=== PATIENT | male | born 1975 | race Hispanic/Latino ===

== ENCOUNTER 2016-11-29 23:15 | Emergency (ER) | payer SELFPAY ==
[2016-11-30 00:19] LABS: Eosinophils % (Auto) 2.4 % (0.0-4.3); Hematocrit 39.4 % (35.5-45.6); Hemoglobin 13.6 gm/dl (11.8-15.2); Mean Corpuscular HGB Conc 35 % (32-34); Mean Corpuscular Hemoglobin 32 pg (28-32); Mean Corpuscular Volume 94 fl (84-94); Platelet Count 250 K/mm3 (140-440); Red Blood Count 4.19 M/mm3 (3.65-5.03); Red Cell Distribution Width 12.6 % (13.2-15.2); White Blood Count 9.2 K/mm3 (4.5-11.0)
[2016-11-30 00:37] LABS: Creatine Kinase MB 1.8 ng/mL (0.0-4.0)
[2016-11-30 00:38] LABS: Alanine Aminotransferase 19 units/L (7-56); Albumin 3.8 g/dL (3.9-5); Albumin/Globulin Ratio 1.3 %; Alkaline Phosphatase 56 units/L (35-129); Anion Gap 18 mmol/L; Bilirubin,Total 0.3 mg/dL (0.1-1.2); Blood Urea Nitrogen 18 mg/dL (9-20); Calcium 8.9 mg/dL (8.4-10.2); Carbon Dioxide 24 mmol/L (22-30); Chloride 101.4 mmol/L (98-107); Glucose 102 mg/dL (75-100); Potassium 4.1 mmol/L (3.6-5.0); Sodium 139 mmol/L (137-145); Total Protein 6.8 g/dL (6.3-8.2)
[2016-11-30] MEDS ORDERED: ASPIRIN PO ONE (02:35)
[2016-11-30] MEDS ORDERED: NITRO-BID 2% TP ONE (02:35)
[2016-11-30] MEDS ORDERED: NACL ONE (02:37)
--- NOTE | 2016-11-30 02:40 | Emergency Department Report ---
HPI - General Chief Complaint: Chest Pain Time Seen by Provider: 11/30/16 02:28 - [facility] HPI: Room 17 The patient is a 41-year-old male presenting with a chief complaint of chest pain. The patient states at approximately 21:00 he developed left-sided chest pain that felt as though someone was sitting on him and stabbing with a knife. The patient admits to shortness of breath and nausea but denies vomiting with the chest pain. The patient states she did develop some diaphoresis with this chest pain. The chest pain has been constant has subsided some but is still present. The patient currently gives his chest pain a score of 4-5/10. Patient does admit to pleuritic component. Patient denies any recent flights or long car trips. The patient states she's never had a stress test or cardiac catheterization Location: Left chest Duration: Constant since 21:00 Quality: Sharp Severity: 4-5/10 Modifying factors: [see above] Context: [see above] Mode of transportation: [not driving] ED Past Medical Hx - Past Medical History Previous Medical History?: No - Surgical History Past Surgical History?: No - Family History Family history: no significant - Social History Smoking Status: Current Every Day Smoker Substance Use Type: None - Medications Home Medications: Home Medications Medication Instructions Recorded Confirmed Last Taken Type Methadone HCl [Diskets] 80 mg PO Q12HR 11/29/16 11/29/16 11/29/16 History ED Review of Systems ROS: Stated complaint: CHEST PAIN Other details as noted in HPI Comment: All other systems reviewed and negative Constitutional: diaphoresis ENT: denies: ear pain, throat pain Respiratory: shortness of breath Cardiovascular: chest pain Endocrine: no symptoms reported Gastrointestinal: nausea. denies: vomiting Genitourinary: denies: urgency, dysuria Musculoskeletal: denies: back pain, joint swelling, arthralgia Skin: denies: rash, lesions Neurological: denies: headache, weakness, paresthesias Psychiatric: denies: anxiety, depression Hematological/Lymphatic: denies: easy bleeding, easy bruising Physical Exam - Physical Exam Vital Signs: Vital Signs 11/29/16 11/30/16 11/30/16 23:38 00:19 00:21 Temperature 99.2 F Pulse Rate 68 63 Respiratory 14 18 18 Rate Blood Pressure 108/75 Blood Pressure 99/53 [Left] O2 Sat by Pulse 98 99 Oximetry Physical Exam: GENERAL: The patient is well-developed well-nourished male sitting on stretcher not appearing to be in acute distress. [] HEENT: Normocephalic. Atraumatic. Extraocular motions are intact. Patient has moist mucous membranes. NECK: Supple. Midline CHEST/LUNGS: Clear to auscultation. There is no respiratory distress noted. HEART/CARDIOVASCULAR: Regular. There is no tachycardia. There is no gallop rub or murmur. ABDOMEN: Abdomen is soft, nontender. Patient has normal bowel sounds. There is no abdominal distention. SKIN: There is no rash. There is no edema. There is no diaphoresis. NEURO: The patient is awake, alert, and oriented. The patient is cooperative. The patient has normal speech MUSCULOSKELETAL: There is no evidence of acute injury. ED Course Vital Signs 11/29/16 11/30/16 11/30/16 23:38 00:19 00:21 Temperature 99.2 F Pulse Rate 68 63 Respiratory 14 18 18 Rate Blood Pressure 108/75 Blood Pressure 99/53 [Left] O2 Sat by Pulse 98 99 Oximetry ED Medical Decision Making - Lab Data Result diagrams: 11/30/16 00:00 11/30/16 00:00 Laboratory Tests 11/30/16 11/30/16 00:00 00:00 WBC 9.2 RBC 4.19 Hgb 13.6 Hct 39.4 MCV 94 MCH 32 MCHC 35 H RDW 12.6 L Plt Count 250 Lymph % (Auto) 20.4 [place] % (Auto) 8.7 H Eos % (Auto) 2.4 Baso % (Auto) 1.0 Lymph # 1.9 [place] # 0.8 Eos # 0.2 Baso # 0.1 Seg Neutrophils % 67.5 Seg Neutrophils # 6.2 Sodium 139 Potassium 4.1 Chloride 101.4 Carbon Dioxide 24 Anion Gap 18 BUN 18 Creatinine 0.9 Estimated GFR > 60 BUN/Creatinine Ratio 20.00 Glucose 102 H Calcium 8.9 Total Bilirubin 0.3 AST 20 ALT 19 Alkaline Phosphatase 56 CK-MB (CK-2) 1.8 Troponin T < 0.010 Total Protein 6.8 Albumin 3.8 L Albumin/Globulin Ratio 1.3 - EKG Data -: EKG Interpreted by Tx EKG shows normal: sinus rhythm Rate: normal - EKG Data When compared to previous EKG there are: previous EKG unavailable Interpretation: other (no ischemic changes seen) - Radiology Data Radiology results: image reviewed (chest x-ray CT chest) interpreted by me: Chest x-ray-no focal infiltrates, no pneumothorax - Differential Diagnosis ACS, PE, pneumothorax, pericarditis, GERD Critical care attestation.: If time is entered above; I have spent that time in minutes in the direct care of this critically ill patient, excluding procedure time. ED Disposition Clinical Impression: Chest pain Disposition: OP ADMITTED IP TO THIS HOSP Is pt being admited?: Yes Does the pt Need Aspirin: Yes Condition: Fair Instructions: Chest Pain (ED) Referrals: PRIMARY CARE, [Primary Care Provider] - 3-5 Days Time of Disposition: 03:27 (hospitalist notified. CT Chest read pending)
[2016-11-30 02:46] VITALS: BP 90/50
--- NOTE | 2016-11-30 03:42 | Cat Scan Report ---
FINAL REPORT PROCEDURE: CT ANGIO CHEST TECHNIQUE: Computerized tomographic angiography of the chest was performed after the IV injection of iodinated nonionic contrast including image processing. The image data was postprocessed using 2-dimensional multiplanar reformatted (MPR) and 3-dimensional (MIP and/or volume rendered) techniques. HISTORY: left-sided chest pain COMPARISON: No prior studies are available for comparison. FINDINGS: Heart and pericardium: Normal. Thoracic aorta: Normal. Pulmonary vasculature: Normal. Lymph nodes: No enlarged thoracic lymph nodes. Lungs: No acute infiltrate. Mild atelectasis both lower lungs. The central airway is patent.. Pleural space: No effusion, thickening, or pneumothorax. Musculoskeletal structures: No significant abnormality. Upper abdominal structures: No significant abnormality. IMPRESSION: There is no evidence of pulmonary arterial emboli. The lungs are clear without infiltrate, effusion or pneumothorax. There is slight atelectasis in both lower lungs.
[2016-11-30] MEDS ORDERED: SODIUM CHLORIDE FLUSH SYRINGE 10 ML IV PRN (03:44)
[2016-11-30] MEDS ORDERED: TYLENOL PO PRN (03:46)
[2016-11-30 04:07] LABS: Creatine Kinase 395 units/L (55-170)
--- NOTE | 2016-11-30 05:12 | Progress Note ---
History Interval history: Patient was presented for chest pain EKG was normal, cardiac enzymes were normal The plan is to admit and do stress test but the patient left AMA before he was admitted to the floor Hospitalist Physical - Constitutional Vitals: Temp Pulse Resp BP Pulse Ox 98.6 F 58 L 20 90/50 98 11/30/16 02:46 11/30/16 02:46 11/30/16 02:46 11/30/16 02:46 11/30/16 02:46 Results - Labs CBC & Chem 7: 11/30/16 00:00 11/30/16 00:00 Labs: Laboratory Last Values WBC 9.2 K/mm3 (4.5-11.0) 11/30/16 00:00 RBC 4.19 M/mm3 (3.65-5.03) 11/30/16 00:00 Hgb 13.6 gm/dl (11.8-15.2) 11/30/16 00:00 Hct 39.4 % (35.5-45.6) 11/30/16 00:00 MCV 94 fl (84-94) 11/30/16 00:00 MCH 32 pg (28-32) 11/30/16 00:00 MCHC 35 % (32-34) H 11/30/16 00:00 RDW 12.6 % (13.2-15.2) L 11/30/16 00:00 Plt Count 250 K/mm3 (140-440) 11/30/16 00:00 Lymph % (Auto) 20.4 % (13.4-35.0) 11/30/16 00:00 [place] % (Auto) 8.7 % (0.0-7.3) H 11/30/16 00:00 Eos % (Auto) 2.4 % (0.0-4.3) 11/30/16 00:00 Baso % (Auto) 1.0 % (0.0-1.8) 11/30/16 00:00 Lymph # 1.9 K/mm3 (1.2-5.4) 11/30/16 00:00 [place] # 0.8 K/mm3 (0.0-0.8) 11/30/16 00:00 Eos # 0.2 K/mm3 (0.0-0.4) 11/30/16 00:00 Baso # 0.1 K/mm3 (0.0-0.1) 11/30/16 00:00 Seg Neutrophils % 67.5 % (40.0-70.0) 11/30/16 00:00 Seg Neutrophils # 6.2 K/mm3 (1.8-7.7) 11/30/16 00:00 Sodium 139 mmol/L (137-145) 11/30/16 00:00 Potassium 4.1 mmol/L (3.6-5.0) 11/30/16 00:00 Chloride 101.4 mmol/L (98-107) 11/30/16 00:00 Carbon Dioxide 24 mmol/L (22-30) 11/30/16 00:00 Anion Gap 18 mmol/L 11/30/16 00:00 BUN 18 mg/dL (9-20) 11/30/16 00:00 Creatinine 0.9 mg/dL (0.8-1.5) 11/30/16 00:00 Estimated GFR > 60 ml/min 11/30/16 00:00 BUN/Creatinine Ratio 20.00 % 11/30/16 00:00 Glucose 102 mg/dL (75-100) H 11/30/16 00:00 Calcium 8.9 mg/dL (8.4-10.2) 11/30/16 00:00 Total Bilirubin 0.3 mg/dL (0.1-1.2) 11/30/16 00:00 AST 20 units/L (5-40) 11/30/16 00:00 ALT 19 units/L (7-56) 11/30/16 00:00 Alkaline Phosphatase 56 units/L (35-129) 11/30/16 00:00 Total Creatine Kinase 395 units/L (55-170) H 11/30/16 00:00 CK-MB (CK-2) 1.8 ng/mL (0.0-4.0) 11/30/16 00:00 CK-MB (CK-2) Rel Index 0.4 (0-4) 11/30/16 00:00 Troponin T < 0.010 ng/mL (0.00-0.029) 11/30/16 00:00 Total Protein 6.8 g/dL (6.3-8.2) 11/30/16 00:00 Albumin 3.8 g/dL (3.9-5) L 11/30/16 00:00 Albumin/Globulin Ratio 1.3 % 11/30/16 00:00
--- NOTE | 2016-11-30 05:16 | Discharge Summary ---
Providers - Providers Date of discharge: 11/30/16 Primary care physician: TYSON LOVELL MD Hospitalization Condition: Stable Hospital course: patient presented to the emergency department for chest pain cardiac enzymes were negative, EKG NSR Plan is to admit and do stress test as the patient left AMA while he was in the emergency department. Disposition: LEFT AGAINST MEDICAL ADVICE Time spent for discharge: 15 minutes - Discharge Diagnoses (1) Chest pain Status: Acute Qualifiers: Chest pain type: C Core Measure Documentation - Palliative Care Palliative Care/ Comfort Measures: Not Applicable - Core Measures Any of the following diagnoses?: none Exam - Physical Exam Narrative exam: Not in cardiopulmonary distress. The patient appeared well nourished and normally developed. Vital signs as documented. Head exam is unremarkable. No scleral icterus . Neck is without jugular venous distension, thyromegaly, or carotid bruits. Lungs are clear to auscultation. Cardiac exam reveals regular rate and Rhythm. First and second heart sounds normal. No murmurs, rubs or gallops. Abdominal exam reveals normal bowel sounds, no masses, no organomegaly and no aortic enlargement. Extremities are nonedematous and both femoral and pedal pulses are normal. PROP DRAWER: Alert and oriented 3. No focal weakness. - Constitutional Vitals: Temp Pulse Resp BP Pulse Ox 98.6 F 58 L 20 90/50 98 11/30/16 02:46 11/30/16 02:46 11/30/16 02:46 11/30/16 02:46 11/30/16 02:46 Plan Follow up with: TYSON LOVELL MD [Primary Care Provider] - 3-5 Days Forms: AMA Form
--- NOTE | 2016-11-30 05:19 | Event Note ---
Date: 11/30/16 patient was presented to the emergency Department for chest pain Cardiac enzymes were negative and EKG was normal sinus rhythm. The plan was to do a stress test in the morning but the patient left AMA. He was in the emergency department. Patient was counseled about the risk and benefit of having stress and he decided to go home.
[2016-11-30] MEDS ORDERED: LOVENOX SUB-Q SCH (10:00)
[2016-11-30] MEDS ORDERED: PEPCID PO SCH (10:00)
[2016-11-30] MEDS ORDERED: COLACE PO SCH (10:00)
[2016-11-30] MEDS ORDERED: METHADONE HCL 80 MG PO SCH (10:00)
--- NOTE | 2016-11-30 12:09 | XRay Report ---
CHEST TWO VIEWS: 11/29/16 23:15:00 CLINICAL: Chest pain. COMPARISON: None FINDINGS: Normal heart and pulmonary vasculature. The lungs are normally expanded and clear.The bones and soft tissues are unremarkable. IMPRESSION: No acute cardiopulmonary process.
[2016-12-01] MEDS ORDERED: BABY ASPIRIN PO SCH (10:00)
== END 2016-11-30 04:55 | disposition left against medical advice (07) ==
LOC: ED 23:15 → 4A 11-30 03:44 → UNDOADMIN 11-30 03:44 → ED 11-30 04:55
DX: R07.9 Chest pain, unspecified (principal); F17.200 Nicotine dependence, unspecified, uncomplicated
CPT/HCPCS: 36415; 71020; 71275; 80053; 82550; 82553; 84484; 85025; 93005; 93010; 99285; Q9967

== ENCOUNTER 2016-11-30 19:41 | Emergency (ER) | payer SELFPAY ==
[2016-11-30 19:52] VITALS: BP 103/70
[2016-11-30 20:16] LABS: Basophils % (Auto) 1.1 % (0.0-1.8); Eosinophils % (Auto) 3.2 % (0.0-4.3); Hematocrit 38.8 % (35.5-45.6); Hemoglobin 13.4 gm/dl (11.8-15.2); Mean Corpuscular HGB Conc 34 % (32-34); Mean Corpuscular Hemoglobin 32 pg (28-32); Mean Corpuscular Volume 94 fl (84-94); Platelet Count 245 K/mm3 (140-440); Red Blood Count 4.15 M/mm3 (3.65-5.03); Red Cell Distribution Width 12.4 % (13.2-15.2); White Blood Count 6.1 K/mm3 (4.5-11.0)
[2016-11-30 20:36] LABS: Anion Gap 18 mmol/L; Blood Urea Nitrogen 14 mg/dL (9-20); Calcium 8.7 mg/dL (8.4-10.2); Carbon Dioxide 23 mmol/L (22-30); Glucose 108 mg/dL (75-100); Potassium 3.8 mmol/L (3.6-5.0); Sodium 141 mmol/L (137-145)
--- NOTE | 2016-12-02 00:56 | ED Elopement Review ---
ED Pt Elopement review - Results review Lab results: Laboratory Tests 11/30/16 11/30/16 20:01 20:01 WBC 6.1 RBC 4.15 Hgb 13.4 Hct 38.8 MCV 94 MCH 32 MCHC 34 RDW 12.4 L Plt Count 245 Lymph % (Auto) 29.8 [place] % (Auto) 8.2 H Eos % (Auto) 3.2 Baso % (Auto) 1.1 Lymph # 1.8 [place] # 0.5 Eos # 0.2 Baso # 0.1 Seg Neutrophils % 57.7 Seg Neutrophils # 3.5 Sodium 141 Potassium 3.8 Chloride 104.0 Carbon Dioxide 23 Anion Gap 18 BUN 14 Creatinine 0.8 Estimated GFR > 60 BUN/Creatinine Ratio 17.50 Glucose 108 H Calcium 8.7 Troponin T < 0.010 - Call Back decision Pt Call Back Decision: No action required
== END 2016-12-01 | disposition left against medical advice (07) ==
LOC: ED 19:41
DX: R07.9 Chest pain, unspecified (principal); Z53.21 Procedure and treatment not carried out due to patient leaving prior to being seen by health care provider
CPT/HCPCS: 36415; 80048; 84484; 85025; 93005; 93010